=== PATIENT | female | born 1990 | race Asian ===

== ENCOUNTER 2022-03-29 21:58 | Day surgery (SDC) | payer BC ==
[2022-03-29] MEDS ORDERED: hydrALAZINE 20 MG/ML VIAL SLOW IVP PRN (22:35)
[2022-03-29] MEDS ORDERED: Lactated Ringer's 1,000 ML IV SCH (22:45)
[2022-03-29 22:56] VITALS: BMI 30.2
[2022-03-29 23:00] LABS: #Eosinphils 0.1 10x3/uL (0.0-0.5); #Monocytes 1.3 10x3/uL (0.0-1.1); #Neutrophils 9.3 10x3/uL (1.5-8.4); %Basophils 0.3 % (0.0-2.0); %Eosinophils 0.4 % (0.0-6.0); %Lymphocytes 6.3 % (18.0-47.0); %Neutrophils 80.1 % (40.0-75.0); Hemoglobin 11.2 g/dL (12.0-15.5); Mean Corpuscular Hemoglobin 29.5 pg (27.0-33.0); Mean Corpuscular Volume 86.6 fl (81.6-98.3); Mean Platelet Volume 11.1 fl (7.4-10.4); Platelet Count 235 10x3/uL (150-450); RBC Distribution Width 13.3 % (11.5-14.5); White Blood Cell (WBC) Count 11.7 10x3/uL (3.5-10.5)
[2022-03-30 00:12] LABS: Bilirubin Neg (Negative); Blood, Urine Negative (Negative); CAUTI Indications for Culture Pregnancy; Clarity Clear (Clear); Glucose, Urine (Dipstick) 50 mg/dL (Negative); Ketone, Urine Negative (Negative); Leukocyte Negative (Negative); Nitrite Negative (Negative); Protein, Urine (Dipstick) Negative (Neg-Trace); Specific Gravity, Urine 1.005 (1.005-1.030); Urobilinogen Normal mg/dL (Less than 2)
[2022-03-30 00:21] LABS: RBC/HPF None Seen HPF (0-3); WBC/HPF None Seen HPF (0-3)
[2022-03-30 00:22] LABS: Bacteria/HPF None Seen HPF (None Seen); Squamous Epithelial 0-3 HPF (0-3); Transitional Epithelial 0-3 HPF (None Seen)
[2022-03-30 00:24] LABS: Urine Culture Reflex Yes Yes
[2022-03-30 00:46] LABS: SARS-CoV-2 NAA Rapid Test Not Detected (NotDetected)
[2022-03-30] MEDS ORDERED: Acetaminophen 500 MG TAB ONE (01:28)
[2022-03-30] MEDS ORDERED: Oseltamivir 75 MG CAP PO SCH (02:15)
[2022-03-30] MEDS ORDERED: Acetaminophen 500 MG TAB PO SCH (02:15)
[2022-03-30 03:37] LABS: ALT (SGPT) 12 U/L (8-55); AST (SGOT) 24 U/L (5-34); Albumin 3.6 g/dL (3.5-5.0); Alkaline Phosphatase 160 U/L (40-110); Anion Gap 16 mmol/L (10-20); BUN (Urea Nitrogen) 8 mg/dL (7.0-18.7); Bilirubin, Total 0.4 mg/dL (0.2-1.2); Calc. Creatinine Clearance 157 mL/min (70-130); Calcium 9.2 mg/dL (7.8-10.44); Carbon Dioxide 18 mmol/L (22-29); Chloride 106 mmol/L (98-107); Estimated GFR 120; Globulin 2.7 g/dL (2.4-3.5); Glucose 115 mg/dL (70-105); Potassium 4.1 mmol/L (3.5-5.1); Protein, Total 6.3 g/dL (6.0-8.3); Sodium 136 mmol/L (136-145)
[2022-03-30 03:39] LABS: Creatinine, Urine 32.52 mg/dL (47-110); Protein, Urine Random Quant Less than 10 mg/dL (1-14)
== END 2022-03-30 04:22 | disposition home or self-care (01) ==
LOC: CSHLD/OP 21:58
PROVIDERS: ATTEND Obstetrics & Gynecology
DX: O60.03 Preterm labor without delivery, third trimester (principal); O36.8330 Maternal care for abnormalities of the fetal heart rate or rhythm, third trimester, not applicable or unspecified; O98.513 Other viral diseases complicating pregnancy, third trimester; J10.1 Influenza due to other identified influenza virus with other respiratory manifestations; Z3A.36 36 weeks gestation of pregnancy; Z20.822 Contact with and (suspected) exposure to COVID-19; Z98.890 Other specified postprocedural states
CPT/HCPCS: 80053; 81001; 82570; 84156; 85025; 87086

== ENCOUNTER 2022-04-06 09:03 | Inpatient (IN) | payer BC ==
[2022-04-06] MEDS ORDERED: Promethazine HCl 25 MG/ML VIAL IM PRN (09:12)
[2022-04-06] MEDS ORDERED: Ibuprofen 800 MG TAB PO PRN (09:12)
[2022-04-06] MEDS ORDERED: Diphenoxylate HCl/Atropine Tablet PO PRN ×2 (09:12)
[2022-04-06] MEDS ORDERED: Docusate 100 MG CAP PO PRN (09:12)
[2022-04-06] MEDS ORDERED: Butorphanol Tartrate 1 MG/ML VIAL SLOW IVP PRN (09:12)
[2022-04-06] MEDS ORDERED: HYDROcodone/Acetaminophen 5/325 mg Tablet PO PRN ×2 (09:12)
[2022-04-06] MEDS ORDERED: Misoprostol 200 MCG TAB PR PRN (09:12)
[2022-04-06] MEDS ORDERED: Acetaminophen 500 MG TAB PO PRN (09:12)
[2022-04-06] MEDS ORDERED: Ondansetron PF 4 MG/2 ML Vial IVP PRN (09:12)
[2022-04-06] MEDS ORDERED: hydrALAZINE 20 MG/ML VIAL SLOW IVP PRN (09:12)
[2022-04-06] MEDS ORDERED: Lidocaine 1% (PF) 30 ML VIAL SC PRN (09:12)
[2022-04-06] MEDS ORDERED: NS w/ Oxytocin 30 units 500 ML IV SCH ×2 (09:15)
[2022-04-06] MEDS ORDERED: Lactated Ringer's 1,000 ML IV SCH (09:15)
[2022-04-06 09:55] VITALS: BMI 30.1
[2022-04-06 10:30] LABS: Hemoglobin 11.6 g/dL (12.0-15.5); Mean Corpuscular HGB CONC 34.1 g/dL (32.0-36.0); Mean Corpuscular Hemoglobin 29.7 pg (27.0-33.0); Mean Platelet Volume 11.1 fl (7.4-10.4); Platelet Count 272 10x3/uL (150-450); RBC Distribution Width 13.2 % (11.5-14.5); Red Blood Cell (RBC) Count 3.91 10x6/uL (3.90-5.03); White Blood Cell (WBC) Count 9.7 10x3/uL (3.5-10.5)
[2022-04-06 10:57] LABS: SARS-CoV-2 NAA Rapid Test Not Detected (NotDetected)
[2022-04-06 11:09] LABS: Syphilis Antibody Nonreactive (Nonreactive); Syphilis Antibody Index 0.04 S/CO (<1.00 Non-Reactive)
[2022-04-06 11:12] LABS: HBSAg Index 0.17 S/CO (0-0.99); HIV (1/2) Antibody/Antigen Non-Reactive (NonReactive); HIV 1/2 INDEX 0.08 S/CO (<1.00); Hep B Surf Ag Non-Reactive S/CO (NonReactive)
[2022-04-06] MEDS ORDERED: Ampicillin 2 GM VIAL ONE (22:43)
[2022-04-06] MEDS ORDERED: Acetaminophen 500 MG TAB PO SCH (22:45)
[2022-04-06] MEDS ORDERED: Ampicillin 2 GM in Sodium Chloride 0.9% 100 ML IVPB SCH (23:00)
[2022-04-07] MEDS ORDERED: Bisacodyl 10 MG SUPP PR PRN (01:37)
[2022-04-07] MEDS ORDERED: diphenhydrAMINE 25 MG CAP PO PRN (01:37)
[2022-04-07] MEDS ORDERED: HYDROcodone/Acetaminophen 5/325 mg Tablet PO PRN (01:37)
[2022-04-07] MEDS ORDERED: Benzocaine-Menthol 82.5 ML CAN TOP PRN (01:37)
[2022-04-07] MEDS ORDERED: Zolpidem Tartrate 5 MG TAB PO PRN (01:37)
[2022-04-07] MEDS ORDERED: Milk Of Magnesia 30 ML UDCUP PO PRN (01:37)
[2022-04-07] MEDS ORDERED: traMADol HCl 50 MG TAB PO PRN (01:37)
[2022-04-07] MEDS ORDERED: Preparation H Ointment 28 GM TUBE PR PRN (01:37)
[2022-04-07] MEDS ORDERED: Lanolin Ointment 7 GM TUBE TOP PRN (01:37)
[2022-04-07] MEDS ORDERED: Boostrix 0.5 ML (Tdap) VIAL (>/=7 yrs of age) IM ONE (01:37)
[2022-04-07] MEDS ORDERED: Ondansetron PF 4 MG/2 ML Vial IVP PRN (01:37)
[2022-04-07] MEDS ORDERED: hydrALAZINE 20 MG/ML VIAL SLOW IVP PRN (01:37)
[2022-04-07] MEDS ORDERED: Misoprostol 200 MCG TAB VAG PRN (01:37)
[2022-04-07] MEDS ORDERED: NS w/ Oxytocin 30 units 500 ML IV SCH (01:45)
[2022-04-07 05:22] LABS: Mean Corpuscular HGB CONC 33.4 g/dL (32.0-36.0); Mean Corpuscular Hemoglobin 28.8 pg (27.0-33.0); Mean Corpuscular Volume 86.2 fl (81.6-98.3); Mean Platelet Volume 11.3 fl (7.4-10.4); Platelet Count 253 10x3/uL (150-450); RBC Distribution Width 13.2 % (11.5-14.5); Red Blood Cell (RBC) Count 3.47 10x6/uL (3.90-5.03); White Blood Cell (WBC) Count 18.5 10x3/uL (3.5-10.5)
[2022-04-07] MEDS: Ibuprofen 800 MG TAB PO SCH ×3 (05:28→22:20)
[2022-04-07] MEDS: Prenatal Vitamin 1 TAB PO SCH (08:52)
[2022-04-07] MEDS: Docusate 100 MG CAP PO SCH ×2 (08:52→21:17)
[2022-04-07] MEDS: Ferrous Sulfate 325 MG TAB PO SCH ×2 (08:53→18:26)
[2022-04-07 23:45] VITALS: TEMP 97.8
[2022-04-08] MEDS: Ibuprofen 800 MG TAB PO SCH ×2 (05:54→14:39)
[2022-04-08 07:51] VITALS: BP 124/73
[2022-04-08] MEDS: Ferrous Sulfate 325 MG TAB PO SCH (08:23)
[2022-04-08] MEDS: Prenatal Vitamin 1 TAB PO SCH (08:26)
[2022-04-08] MEDS: Docusate 100 MG CAP PO SCH (08:26)
== END 2022-04-08 16:00 | disposition home or self-care (01) | DRG 807 ==
LOC: CSHLD 09:03 → CSHPP 04-07 02:52
PROVIDERS: ADMIT Obstetrics & Gynecology; ATTEND Obstetrics & Gynecology
PROC: 10D07Z6 Extraction of Products of Conception, Vacuum, Via Natural or Artificial Opening (ICD-10-PCS; principal; 2022-04-07)
DX: O42.02 Full-term premature rupture of membranes, onset of labor within 24 hours of rupture (principal); Z37.0 Single live birth; Z3A.37 37 weeks gestation of pregnancy; Z20.822 Contact with and (suspected) exposure to COVID-19; O34.211 Maternal care for low transverse scar from previous cesarean delivery; O22.13 Genital varices in pregnancy, third trimester
CPT/HCPCS: 36415; 85027; 86780; 86850; 86900; 86901; 87340; 87389; J0290; J2590; J3490; J7120; U0002